=== PATIENT | female | born 1990 | race Two or more races ===

== ENCOUNTER 2019-09-11 08:43 | Inpatient (IN) | payer SELFPAY ==
[~2019-09-11] VITALS: Ht 170 cm; Wt 98.0 kg
[2019-09-11] MEDS ORDERED: LACTATED RINGERS 1,000 ML IV SCH (08:54)
[2019-09-11] MEDS ORDERED: NALBUPHINE 10 MG/ML AMP IVP PRN (08:55)
[2019-09-11] MEDS ORDERED: PROMETHAZINE 25 MG/ML VIAL IVP PRN (08:55)
[2019-09-11] MEDS ORDERED: CARBOPROST 250 MCG/ML AMP IM PRN (08:55)
[2019-09-11] MEDS ORDERED: METHYLERGONOVINE 0.2 MG/ML AMP IM PRN (08:55)
[2019-09-11] MEDS ORDERED: OXYTOCIN 20 UNITS in LACTATED RINGERS 1,000 ML IV SCH (09:00)
[2019-09-11] MEDS ORDERED: AMPICILLIN 2,000 MG in NACL 0.9% MINI-BAG PLUS 100 ML IV SCH (09:15)
[2019-09-11] MEDS ORDERED: AMPICILLIN 2,000 MG VIAL ONE (09:27)
[2019-09-11 10:11] LABS: APPEARANCE,URINE SL CLOUDY (CLEAR); BILIRUBIN,URINE NEGATIVE (NEGATIVE); BLOOD, URINE 3+ (NEGATIVE); COLOR,URINE YELLOW (YELLOW); LEUKOCYTE ESTERASE ,URINE 1+ (NEGATIVE); NITRITE, URINE NEGATIVE (NEGATIVE); PH,URINE 6.5 (5.0-9.0); UGLUCOSE NEGATIVE (NEGATIVE)
[2019-09-11 10:26] LABS: RBC,URINE >100 /HPF (0-5)
[2019-09-11] MEDS ORDERED: OXYTOCIN 20 UNITS/LR PREMIX 1,000 ML IV ONE (10:30)
[2019-09-11] MEDS ORDERED: LIDOCAINE 1% 500 MG/50 ML VIAL ONE (11:40)
[2019-09-11] MEDS ORDERED: fentaNYL 0.05 MG/ML VIAL ONE (11:41)
[2019-09-11] MEDS ORDERED: fentaNYL 0.05 MG/ML VIAL IVP ONE (11:55)
[2019-09-11] MEDS ORDERED: AMPICILLIN 1,000 MG in NACL 0.9% MINI-BAG PLUS 50 ML IV SCH (12:00)
[2019-09-11 13:15] VITALS: BP 119/76
[2019-09-11] MEDS ORDERED: MEASLES, MUMPS, AND RUBELLA 1 VIAL SQVAC PRN (13:20)
[2019-09-11 15:09] LABS: BASOPHILS # (AUTO) 0.1 K/uL (0.00-0.22); EOSINOPHILS # (AUTO) 0.3 K/uL (0-0.4); EOSINOPHILS % (AUTO) 2.9 % (0.0-4.0); HEMATOCRIT 38.3 % (36-48); HEMOGLOBIN 12.4 g/dL (12.0-16.0); MEAN CORPUSCULAR HEMOGLOBIN 27 pg (27-31); MEAN CORPUSCULAR HGB CONC 32 g/dL (33-37); MEAN CORPUSCULAR VOLUME 83.6 fL (80-94); MONOCYTES # (AUTO) 0.6 K/uL (0.8-1.0); MONOCYTES % (AUTO) 6.4 % (1.7-9.3); NEUTROPHILS # (AUTO) 7.9 K/uL (1.8-7.7); NEUTROPHILS % (AUTO) 79.7 % (42.2-75.2); PLATELET COUNT (AUTO) 155 K/uL (140-450); RED BLOOD CELL COUNT(AUTO) 4.59 MIL/uL (4.20-5.40); RED CELL DISTRIBUTION WIDTH 16.5 % (11.6-13.7); WHITE BLOOD COUNT (AUTO) 9.9 K/uL (4.8-10.8)
[2019-09-11] MEDS: IBUPROFEN 800 MG TAB PO PRN (16:23)
[2019-09-12] MEDS: IBUPROFEN 800 MG TAB PO PRN ×3 (00:18→17:23)
[2019-09-12 06:35] LABS: HEMATOCRIT 36.1 % (36-48); HEMOGLOBIN 11.7 g/dL (12.0-16.0)
--- NOTE | 2019-09-12 09:17 | NUR ---
PATIENT HAS BEEN SCREENED AND CATEGORIZED LOW NUTRITION RISK. PATIENT WILL BE SEEN WITHIN 7 DAYS OF ADMISSION. 09/17/[address]
[2019-09-12] MEDS ORDERED: DOCUSATE SOD/SENNA 50/8.6 MG 1 TAB PO SCH (21:00)
== END 2019-09-12 18:20 | disposition home or self-care (01) | DRG 807 ==
LOC: MLD 08:43 → MFCC 14:20
PROVIDERS: ADMIT Obstetrics & Gynecology; ATTEND Obstetrics & Gynecology
PROC: 10E0XZZ Delivery of Products of Conception, External Approach (ICD-10-PCS; principal; 2019-09-11)
PROC: 0HQ9XZZ Repair Perineum Skin, External Approach (ICD-10-PCS; 2019-09-11)
PROC: 3E0234Z Introduction of Serum, Toxoid and Vaccine into Muscle, Percutaneous Approach (ICD-10-PCS; 2019-09-12)
PROC: 3E02340 Introduction of Influenza Vaccine into Muscle, Percutaneous Approach (ICD-10-PCS; 2019-09-12)
DX: O99.824 Streptococcus B carrier state complicating childbirth (principal); Z37.0 Single live birth; O69.81X0 Labor and delivery complicated by cord around neck, without compression, not applicable or unspecified; Z3A.38 38 weeks gestation of pregnancy; O69.89X0 Labor and delivery complicated by other cord complications, not applicable or unspecified; O70.0 First degree perineal laceration during delivery; Z23 Encounter for immunization
CPT/HCPCS: 36415; 59409; 81001; 85018; 85025; 86592; 86886; 86900; 86901; 87086; 90715; J0290; J2001; J2300; J2550; J2590; J3010; J7120